=== PATIENT | female | born 1970 ===

== ENCOUNTER 2018-06-22 10:56 | Outpatient (CLI) | payer SELFPAY | END 2018-06-22 10:57 | disposition home or self-care (01) | LOC: C.USIC 10:56 | DX: R10.2 Pelvic and perineal pain (principal) ==

== ENCOUNTER 2018-07-22 09:05 | Outpatient (CLI) | payer MEDICAID, OTHER | END 2018-07-22 09:06 | disposition home or self-care (01) | LOC: C.USIC 09:05 | DX: R59.1 Generalized enlarged lymph nodes (principal); R07.9 Chest pain, unspecified ==